=== PATIENT | female | born 1955 | race Caucasian/White ===

== ENCOUNTER 2017-12-28 11:41 | Emergency (ER) | payer MEDICAID ==
[~2017-12-28] VITALS: Ht 175.3 cm; Wt 81.6 kg
[2017-12-28 12:03] VITALS: BP 124/70
[2017-12-28 13:55] LABS: Basophils # (auto) 0.1 uL; Basophils % (auto) 0.7 % (0.0-2.0); Eosinophils # (auto) 0.2 uL; Eosinophils % (auto) 2.8 % (0.0-7.0); Hematocrit 42.6 % (36.0-46.0); Hemoglobin 14.2 g/dL (12.2-16.2); Lymphocytes # (auto) 1.9 uL; Mean Corpuscular Hemoglobin 31.9 pg (28.0-32.0); Mean Corpuscular Hgb Conc. 33.4 g/dL (32.0-36.0); Mean Corpuscular Volume 95.6 fL (80.0-100.0); Monocytes # (auto) 0.5 uL; Monocytes % (auto) 6.1 % (0.0-12.0); Neutrophils # (auto) 5.5 uL; Neutrophils % (auto) 67.4 % (37.0-80.0); Nucleated Red Blood Cells % 0.1 %; Platelet Count (auto) 243 10^3/uL (140-450); Red Blood Cells 4.46 10^6/uL (4.0-5.20); White Blood Cell 8.2 10^3/uL (4.4-10.8)
[2017-12-28 14:12] LABS: Anion Gap 9 (5-15); Blood Urea Nitrogen 9 mg/dL (7-18); Calcium 9.3 mg/dL (8.5-10.1); Carbon Dioxide 27 mmol/L (21-32); Chloride 103 mmol/L (98-107); Glucose 86 mg/dL (74-106); Potassium 3.8 mmol/L (3.5-5.1); Sodium 139 mmol/L (136-145)
[2017-12-28 14:17] LABS: Alanine Aminotransferase 20 U/L (13-56); Alkaline Phosphatase 80 U/L (45-117); Aspartate Aminotransferase 16 U/L (15-37); BUN/Creatinine Ratio 13.6; Bilirubin, Total 0.6 mg/dL (0.2-1.0); GFR African American 116 mL/min; GFR Non-African American 96 mL/min; Total Protein 7.2 g/dL (6.4-8.2)
== END 2017-12-28 17:49 | disposition home or self-care (01) ==
LOC: ER 11:41
DX: M18.10 Unilateral primary osteoarthritis of first carpometacarpal joint, unspecified hand (principal); J06.9 Acute upper respiratory infection, unspecified; E11.9 Type 2 diabetes mellitus without complications
CPT/HCPCS: 36415; 80053; 84484; 85025

== ENCOUNTER → 2024-03-29 | Outpatient (CLI) | payer BC ==
[2024-03-29 11:04] LABS: Urine Bacteria None Seen /hpf (None Seen)
[2024-03-29 11:13] LABS: Basophils # (auto) 0.1 10 ^3/uL (0-0.2); Basophils % (auto) 0.8 % (0.0-2.0); Eosinophils # (auto) 0.3 10 ^3/uL (0-0.8); Eosinophils % (auto) 3.8 % (0.0-7.0); Hematocrit 39.5 % (36.0-46.0); Hemoglobin 13.3 g/dL (12.2-16.2); Lymphocytes # (auto) 1.8 10 ^3/uL (0.4-5.4); Lymphocytes % (auto) 25.7 % (10.0-50.0); Mean Corpuscular Hemoglobin 31.8 pg (28.0-32.0); Mean Corpuscular Hgb Conc. 33.6 g/dL (32.0-36.0); Mean Corpuscular Volume 94.8 fL (80.0-100.0); Monocytes # (auto) 0.5 10 ^3/uL (0-1.3); Monocytes % (auto) 6.9 % (0.0-12.0); Neutrophils # (auto) 4.3 10 ^3/uL (1.6-8.6); Neutrophils % (auto) 62.8 % (37.0-80.0); Red Blood Cells 4.17 10^6/uL (4.0-5.20); Red Cell Distribution Width 13.3 % (11.8-14.3); White Blood Cell 6.8 10^3/uL (4.4-10.8)
[2024-03-29 11:45] LABS: Urine Blood Negative /uL (Negative); Urine Clarity Clear (Clear); Urine Color Yellow (Yellow); Urine Protein, UAD Negative (Negative); Urine Specific Gravity 1.014 (1.001-1.035); Urine Urobilinogen Normal (Negative); Urine WBC 3 /hpf (0 - 5); Urine pH 5.5 (5.0-9.0)
[2024-03-29 12:03] LABS: Alanine Aminotransferase 18 U/L (7-40); Alkaline Phosphatase 80 U/L (46-116); Anion Gap 7 (5-15); Aspartate Aminotransferase 19 U/L (13-40); BUN/Creatinine Ratio 11.5 (10.0-20.0); Blood Urea Nitrogen 9 mg/dL (9-23); Calcium 9.7 mg/dL (8.7-10.4); Carbon Dioxide 26 mmol/L (20-30); Chloride 106 mmol/L (98-107); Glucose 87 mg/dL (74-106); Potassium 3.9 mmol/L (3.5-5.1); Sodium 139 mmol/L (136-145); Uric Acid 5.1 mg/dL (3.1-7.8)
[2024-03-29 12:04] LABS: Albumin 4.4 g/dL (3.2-4.8); Bilirubin, Total 0.8 mg/dL (0.2-1.0); Total Protein 6.9 g/dL (5.7-8.2)
[2024-03-30 08:06] LABS: Rheumatoid Arthritis Factor <10.0 IU/mL (<14.0); Thyroxine (T4) 8.3 ug/dL (4.5-12.0)
[2024-03-30 09:07] LABS: Anti-Nuclear Antibody Direct Negative (Negative)
== END | disposition home or self-care (01) ==
LOC: LAB 10:47
PROVIDERS: ATTEND Internal Medicine
DX: Z00.01 Encounter for general adult medical examination with abnormal findings (principal); E16.2 Hypoglycemia, unspecified; M25.50 Pain in unspecified joint
CPT/HCPCS: 36415; 80053; 81001; 82306; 83036; 84436; 84443; 84550; 85025; 86038; 86431; 87086

== ENCOUNTER 2024-09-27 11:38 | Emergency (ER) | payer BC ==
[~2024-09-27] VITALS: Ht 177.8 cm; Wt 82.6 kg
[2024-09-27 12:14] VITALS: BP 117/66; PULSE 64; RESP 18; TEMP 98.7; O2SAT 95
[2024-09-27] MEDS ORDERED: ACET-1080 PO (12:17)
== END 2024-09-27 12:32 | disposition home or self-care (01) ==
LOC: ER 11:38
DX: E11.9 Type 2 diabetes mellitus without complications (principal); Z46.89 Encounter for fitting and adjustment of other specified devices; Z76.0 Encounter for issue of repeat prescription; Z98.890 Other specified postprocedural states; Z79.899 Other long term (current) drug therapy

== ENCOUNTER → 2025-06-05 | Outpatient (CLI) | payer BC ==
[~2025-06-05] MED LIST: ACET-1080 PO
[2025-06-05 07:57] LABS: Alanine Aminotransferase 15 U/L (7-40); Albumin 4.2 g/dL (3.2-4.8); Alkaline Phosphatase 77 U/L (46-116); Anion Gap 9 (5-15); BUN/Creatinine Ratio 22.3 (10.0-20.0); Blood Urea Nitrogen 21 mg/dL (9-23); Calcium 9.5 mg/dL (8.7-10.4); Carbon Dioxide 27 mmol/L (20-31); Glucose 91 mg/dL (74-106); Potassium 3.8 mmol/L (3.5-5.1); Sodium 144 mmol/L (136-145); Total Protein 6.5 g/dL (5.7-8.2); Triglycerides 63 mg/dL (< 150)
[2025-06-05 07:58] LABS: Bilirubin, Total 0.8 mg/dL (0.2-1.0); Cholesterol 176 mg/dL (< 200); HDL Cholesterol 46 mg/dL (40-59)
[2025-06-05 08:02] LABS: Chloride 108 mmol/L (98-107)
[2025-06-05 08:14] LABS: Microalb/Creat Ratio, Urine < 3.0
== END | disposition home or self-care (01) ==
LOC: LAB 07:15
PROVIDERS: ATTEND Internal Medicine
DX: E78.5 Hyperlipidemia, unspecified (principal); R73.9 Hyperglycemia, unspecified; Z12.11 Encounter for screening for malignant neoplasm of colon; Z13.9 Encounter for screening, unspecified
CPT/HCPCS: 36415; 80053; 80061; 82043; 82270; 82570; 83036

== ENCOUNTER → 2025-09-03 | Outpatient (CLI) | payer BC ==
[2025-09-03 09:47] LABS: Alanine Aminotransferase 18 U/L (7-40); Calcium 8.9 mg/dL (8.7-10.4); Microalb/Creat Ratio, Urine 3.00
[2025-09-03 09:48] LABS: Albumin 4.1 g/dL (3.2-4.8); Anion Gap 10 (5-15); BUN/Creatinine Ratio 23.0 (10.0-20.0); Blood Urea Nitrogen 17 mg/dL (9-23); Carbon Dioxide 28 mmol/L (20-31); Chloride 105 mmol/L (98-107); Cholesterol 193 mg/dL (< 200); Potassium 3.8 mmol/L (3.5-5.1); Sodium 143 mmol/L (136-145); Triglycerides 137 mg/dL (< 150)
[2025-09-03 09:49] LABS: Total Protein 6.8 g/dL (5.7-8.2)
[2025-09-03 09:50] LABS: Alkaline Phosphatase 137 U/L (46-116); Bilirubin, Total 0.3 mg/dL (0.2-1.0); Glucose 92 mg/dL (74-106); HDL Cholesterol 45 mg/dL (40-59)
== END | disposition home or self-care (01) ==
LOC: LAB 08:04
PROVIDERS: ATTEND Pathology Anatomic Pathology & Clinical Pathology
DX: E78.5 Hyperlipidemia, unspecified (principal); R73.9 Hyperglycemia, unspecified
CPT/HCPCS: 36415; 80053; 80061; 82043; 82570; 83036